=== PATIENT | female | born 1950 | race Caucasian/White ===

== ENCOUNTER 2017-10-11 06:10 | Inpatient (IN) | payer MEDICARE, BC ==
--- NOTE | 2017-09-28 22:43 | HP ---
HISTORY AND PHYSICAL: DATE OF ADMISSION/SURGERY: 10/11/17 DATE OF OFFICE VISIT: 09/28/17 SURGEON: Massiel Kinney MD * (DICTATED BY PASTOR KRAUSE) PROCEDURE: Right total knee arthroplasty. CHIEF COMPLAINT: Right knee pain. HISTORY OF PRESENT ILLNESS: Ms. Cerrato is a 66-year-old female with continued complaints of right knee pain. She has failed conservative management and elected to proceed with a right total knee arthroplasty, which is scheduled for 10/11/[address] Kinney. PAST MEDICAL HISTORY: Hypertension, rheumatoid arthritis, depression and anxiety. PAST SURGICAL HISTORY: Right shoulder rotator cuff repair, lumbar diskectomy, tonsillectomy, tubal ligation. CURRENT MEDICATIONS: 1. Hydroxychloroquine sulfate 200 mg daily. 2. Methotrexate 2.5 mg 8 tabs per week. 3. Enbrel 25 mg subcu 2 times a week. 4. Folic acid 1 mg daily. 5. Losartan potassium 25 mg daily. 6. B12 injection. 7. Alendronate sodium 70 mg weekly. 8. Sertraline 50 mg daily. 9. Montelukast sodium 10 mg q.h.s. 10. Citracal plus vitamin D3. 11. Vitamin K. 12. Vitamin B complex. 13. Claritin 10 mg daily. 14. Flonase nasal spray as needed. 15. Naphcon-A eye drops. 16. Hydrochlorothiazide 12.5 mg daily. ALLERGIES: None. FAMILY HISTORY: Cancer and coronary artery disease. SOCIAL HISTORY: A 66-year-old female lives with her . She does not smoke, use drugs or alcohol. REVIEW OF SYSTEMS: A complete 14-point review of systems was reviewed with the patient. Positive for occasional palpitation. She denies history of DVT, PE, hepatitis, HIV or anesthesia problems. PHYSICAL EXAMINATION GENERAL: She is well developed, well nourished, in no acute distress. VITAL SIGNS: She stands 66 inches tall, weighs 219 pounds. Her blood pressure is 122/67. Her heart rate is 64. HEENT: Normocephalic, atraumatic. NECK: Supple. No palpable lymph nodes. PULMONARY: The lungs are clear to auscultation bilaterally. CARDIO: Regular rate and rhythm. Strong S1, S2. ABDOMEN: Soft, nontender, nondistended. NEUROLOGICAL: Alert and oriented x3. MUSCULOSKELETAL: Right lower extremity, the skin is intact. No open wounds or abrasions. She has a moderate joint effusion. Range of motion is 15 to 130 degrees. Patellofemoral crepitus. There is a 15-degree valgus deformity. 2+ dorsalis pedis pulses. Intact sensation in her lower extremity. Muscle group strengths are intact at 5/5. ASSESSMENT AND PLAN: Ms. Cerrato is a 66-year-old female with complaints of right knee pain secondary to end-stage osteoarthritis. She has failed conservative management and elected to proceed with a right total knee arthroplasty, which is scheduled for 10/11/[address] Kinney discussed the risks and benefits of this surgery at today's visit and all of her questions were answered. She will follow up with Dr. Kinney 2 weeks after the surgery. PASTOR KRAUSE [id number]/[facility] #: [id number] MEHDI
[~2017-10-11 06:10] MED LIST: Buffered Lidocaine 0.9% SYRIN* 5 ML/SYR SYRINGE INTRADERM ONE; Dexamethasone TAB* 4 MG PO ONE; DiMENhydriNATE IV* 50 MG/ML VIAL IV PUSH PRN; Famotidine IV* 10 MG/ML 2 ML (20 mg) IV ONE; Gabapentin CAP(*) 300 MG PO ONE; Morphine INJ* 2 MG/ML 1 ML CARPUJECT IV PRN; Naloxone* 0.4 MG/ML 1 ML VIAL IV PRN; Ondansetron INJ* 2 MG/ML VIAL ONE; PROCHLORPERAZINE INJ 5 MG/ML 2 ML VIAL IV PRN; Scopolamine 1.5 mg* PATCH TRANSDERM ONE; fentaNYL* 50 MCG/ML 2 ML VIAL (100 MCG VIAL) IV PRN
[2017-10-11] MEDS ORDERED: Famotidine IV* 10 MG/ML 2 ML (20 mg) ONE (06:13)
[2017-10-11] MEDS ORDERED: Gabapentin CAP(*) 300 MG ONE (06:13)
[2017-10-11] MEDS ORDERED: Scopolamine 1.5 mg* PATCH ONE (06:14)
[2017-10-11] MEDS ORDERED: ceFAZolin 2 GM PREMIX (*) 2 GM/50 ML BAG IVPB ONE (06:14)
[2017-10-11] MEDS ORDERED: Dexamethasone TAB* 4 MG ONE (06:14)
[2017-10-11] MEDS ORDERED: Bupivacaine 0.5% SDV PF* 30ML VIAL ONE (06:42)
[2017-10-11] MEDS ORDERED: Ondansetron ODT TAB* 4 MG ONE (06:51)
[2017-10-11] MEDS ORDERED: fentaNYL* 50 MCG/ML 2 ML VIAL (100 MCG VIAL) ONE (07:06)
[2017-10-11] MEDS ORDERED: Midazolam* 1 MG/ML 10 ML VIAL (10 MG) ONE (07:06)
[2017-10-11] MEDS ORDERED: KETAMINE HCL* 50 MG/ML 10 ML VIAL ONE (07:06)
[2017-10-11] MEDS ORDERED: Tranexamic Acid 1,000 MG/10 ML SDV IV ONE (07:51)
[2017-10-11] MEDS ORDERED: Tranexamic Acid 1,000 MG/10 ML 1,000 MG in NS 0.9% 100 ML* 100 ML IV ONE (08:00)
[2017-10-11] MEDS ORDERED: Lidocaine 2% PF * 5 ML VIAL ONE (08:56)
[2017-10-11] MEDS ORDERED: Bupivacaine 0.25% SDV* 30 ML ONE (08:56)
[2017-10-11] MEDS ORDERED: Bupivacaine 0.5% PF 10 ML VIAL INJ ONE (08:56)
[2017-10-11] MEDS ORDERED: Propofol* 500 MG/50 ML BTL ONE (08:56)
[2017-10-11] MEDS ORDERED: Phenylephrine INJ* 10 MG/ML 1 ML VIAL (10 MG) ONE (09:20)
[2017-10-11] MEDS ORDERED: Propofol* 10 MG/ML 20 ML BTL IV PUSH ONE (10:16)
[2017-10-11] MEDS ORDERED: Cyclobenzaprine TAB* 10 MG PO PRN (10:42)
[2017-10-11] MEDS ORDERED: Bisacodyl SUPP* 10 MG SUPP PR PRN (10:42)
[2017-10-11] MEDS ORDERED: Ondansetron 40 MG VIAL* 2 MG/ML 20 ML VIAL IV PRN (10:42)
[2017-10-11] MEDS ORDERED: Morphine VIAL* 4 MG/ML VIAL (1 ml vial) IV PRN (10:42)
[2017-10-11] MEDS ORDERED: diPHENhydraMINE IV* 50 MG/ML 1 ml VIAL (BENADRYL) IV PRN (10:42)
[2017-10-11] MEDS ORDERED: Magnesium Hydroxide LIQ* 30 ML UDC PO PRN (10:42)
[2017-10-11] MEDS ORDERED: Acetaminophen TAB* 325 MG PO PRN (10:42)
[2017-10-11] MEDS ORDERED: oxyCODONE/Acetamin 5/325 MG* TAB PO PRN (10:42)
--- NOTE | 2017-10-11 11:32 | RAD ---
Indication: Right total knee replacement. 2 views of the right knee demonstrates bipolar right knee arthroplasty in satisfactory position. IMPRESSION: Right knee arthroplasty in satisfactory position.
[2017-10-11] MEDS: oxyCODONE/Acetamin 5/325 MG* TAB PO PRN ×2 (17:05→21:50)
[2017-10-11] MEDS: ceFAZolin 1 GM in Dextrose (*) 1 GM/50 ML BAG IVPB SCH (17:05)
[2017-10-11] MEDS ORDERED: Warfarin TAB(*) 6 MG PO ONE (18:00)
[2017-10-11] MEDS: Docusate CAP* 100 MG PO SCH (21:51)
[2017-10-11] MEDS: Magnesium Hydroxide LIQ* 30 ML UDC PO SCH (21:51)
[2017-10-12] MEDS: ceFAZolin 1 GM in Dextrose (*) 1 GM/50 ML BAG IVPB SCH ×2 (00:29→09:20)
[2017-10-12] MEDS: oxyCODONE TAB* 5 MG TAB PO PRN ×4 (01:38→22:27)
[2017-10-12] MEDS: oxyCODONE/Acetamin 5/325 MG* TAB PO PRN ×2 (05:56→09:53)
[2017-10-12 08:16] LABS: Hematocrit 28 % (35-47); Hemoglobin 9.8 g/dl (12.0-16.0); Mean Platelet Volume 8.2 um3 (7.4-10.4); Platelet Count 241 10^3/ul (150-450)
[2017-10-12 08:17] LABS: INR 1.07 (0.77-1.02)
[2017-10-12 08:21] LABS: EGFR Non-African American 100.3 (>60)
[2017-10-12] MEDS: Sertraline* 50 MG TAB PO SCH (09:20)
[2017-10-12] MEDS: Magnesium Hydroxide LIQ* 30 ML UDC PO SCH ×2 (09:20→19:26)
[2017-10-12] MEDS: Docusate CAP* 100 MG PO SCH ×2 (09:20→19:27)
[2017-10-12] MEDS: UBIQUINOL PO SCH (09:21)
[2017-10-12] MEDS: Vitamin THERAPEUTIC TAB PO SCH (09:21)
[2017-10-12] MEDS: Hydroxychloroquine TAB* 200 MG PO SCH (09:52)
[2017-10-12] MEDS ORDERED: Potassium Chlor TAB* 20 MEQ TAB.ER PO ONE (10:44)
--- NOTE | 2017-10-12 10:44 | PN ---
Subjective Date of Service: 10/12/17 Interval History: Increased pain this morning. reports it is a little better now after Percocet. Feels a little dizzy this am, weak and a little weepy. She states "I know it will get better, just a tough day". Denies nausea, abdominal pain. Little appetite. No fever or chills. No CP/ SOB Objective Active Medications: Acetaminophen (Tylenol Tab*) 650 mg PO Q4H PRN PRN Reason: PAIN OR TEMPERATURE Bisacodyl (Dulcolax Supp*) 10 mg [place] DAILY PRN PRN Reason: constipation Cyclobenzaprine HCl (Flexeril Tab*) 5 mg PO TID PRN PRN Reason: SPASMS Diphenhydramine HCl (Benadryl Iv*) 25 mg IV Q6H PRN PRN Reason: itching Docusate Sodium (Colace Cap*) 100 mg PO BID [facility] Last Admin: 10/12/17 09:20 Dose: 100 mg Enoxaparin Sodium (Lovenox(*)) 30 mg SUBCUT Q24H [facility] Hydroxychloroquine Sulfate (Plaquenil Tab*) 200 mg PO QAM [facility] Last Admin: 10/12/17 09:52 Dose: 200 mg Lactated Ringer's (Lactated Ringers 1000 Ml Bag*) 1,000 mls @ 75 mls/hr IV PER RATE [facility] Last Admin: 10/12/17 07:05 Dose: 75 mls/hr Lactulose (Lactulose*) 30 ml PO Q6H PRN PRN Reason: constipation Magnesium Hydroxide (Milk Of Magnesia Liq*) 30 ml PO BID [facility] Last Admin: 10/12/17 09:20 Dose: 30 ml Magnesium Hydroxide (Milk Of Magnesia Liq*) 30 ml PO Q6H PRN PRN Reason: constipation Montelukast Sodium (Singulair Tab*) 10 mg PO QPM [facility] Morphine Sulfate (Morphine Vial*) 2 mg IV Q2H PRN PRN Reason: PAIN Last Admin: 10/11/17 21:54 Dose: 2 mg Multivitamins (Theragran Tab*) 1 tab PO DAILY [facility] Last Admin: 10/12/17 09:21 Dose: 1 tab Non-Formulary Medication (Ubiquinol [Ubiquinol]) 3 cap PO QAM [facility] Last Admin: 10/12/17 09:21 Dose: Not Given Ondansetron HCl (Zofran 40 Mg Vial*) 4 mg IV Q6H PRN PRN Reason: nausea Oxycodone HCl (Roxycodone Tab*) 10 mg PO Q4H PRN PRN Reason: PAIN - SEVERE Last Admin: 10/12/17 01:38 Dose: 10 mg Oxycodone/Acetaminophen (Percocet 5/325 Tab*) 2 tab PO Q4H PRN PRN Reason: PAIN Last Admin: 10/12/17 09:53 Dose: 2 tab Oxycodone/Acetaminophen (Percocet 5/325 Tab*) 1 tab PO Q4H PRN PRN Reason: PAIN Pharmacy Profile Note (Scopolamine Patch Remove*) 1 note PATCH OFF ONCE ONE Stop: 10/14/17 06:01 Sertraline HCl (Zoloft*) 75 mg PO QAM [facility] Last Admin: 10/12/17 09:20 Dose: 75 mg Warfarin Sodium (Coumadin Tab(*)) 6 mg PO ONCE@1700 BEAN; Protocol Stop: 10/12/17 17:01 Vital Signs - 8 hr 10/12/17 10/12/17 10/12/17 03:45 05:56 07:17 Temperature 98.1 F Pulse Rate 67 Respiratory 15 16 16 Rate Blood Pressure 110/65 (mmHg) O2 Sat by Pulse 98 98 Oximetry 10/12/17 10/12/17 10/12/17 07:42 09:53 09:55 Temperature 98.1 F Pulse Rate 63 Respiratory 18 18 18 Rate Blood Pressure 95/50 (mmHg) O2 Sat by Pulse 97 Oximetry Oxygen Devices in Use Now: Nasal Cannula Appearance: 66 yo female A+Ox3 in mild pain Eyes: No Scleral Icterus, PERRLA Ears/Nose/Mouth/Throat: NL Teeth, Lips, Gums, Mucous Membranes Moist Neck: NL Appearance and Movements; NL JVP Respiratory: Symmetrical Chest Expansion and Respiratory Effort, Clear to Auscultation Cardiovascular: NL Sounds; No Murmurs; No JVD, RRR, No Edema Abdominal: NL Sounds; No Tenderness; No Distention Extremities: No Clubbing, Cyanosis, - - right knee with cryo-unit intact - good periperal sensation Skin: No Rash or Ulcers, No Nodules or Sclerosis Neurological: Alert and Oriented x 3, NL Sensation, NL Muscle Strength and Tone Lines/Tubes/Other Access: Clean, Dry and Intact Peripheral IV Nutrition: Taking PO's Result Diagrams: 10/12/17 07:53 10/12/17 07:53 Assess/Plan/Problems-Billing Assessment: - Patient Problems (1) Status post total right knee replacement Comment: - Dispo per Ortho - POD #1 - Doing very well. - Bowel regimen, PT/OT - pain management - discussed with patien - plan to start scheduled APAP, DC percocet and continue oxycodone prn. (2) HTN (hypertension) Comment: - soft BPs this am. Continue to hole HTCZ and losartan, restart when appropriate (3) Rheumatoid arthritis Comment: - continue home medications - plaquenil, Methotrexate to be continued as outpt (4) DVT prophylaxis Comment: lovenox - coumadin bridge (5) Full code status
--- NOTE | 2017-10-12 11:41 | PN ---
Progress Note - Progress Note Date of Service: 10/12/17 SOAP: Subjective: [Seen sitting up in chair this am. Pt states she has moderate pain. She is having trouble getting comfortable. She states that she was able to get up and walk with PT today. Denies any numbness, tingling, nausea, vomiting, chest pain or SOB. ] Objective: [General: Pt is awake, alert and oriented. NAD MSK, RLE: Inspection of the right knee reveals a dressing that is clean, dry and intact. + df/pf. Full sensation to light touch distally. 2+ DP pulse. ] Vital Signs Temp 98.1 F 10/12/17 07:42 Pulse 63 10/12/17 07:42 Resp 18 10/12/17 09:55 BP 95/50 10/12/17 07:42 Pulse Ox 97 10/12/17 07:42 Intake & Output 10/11/17 10/12/17 10/12/17 18:59 06:59 18:59 Intake Total 2200 1640 1331 Output Total 2600 1200 Balance -771 808 9895 Intake: IV Fluids 1999 50 1011 ABX - CEFAZOLIN 50 53 LR 2000 958 Oral 200 1590 320 Output: Casarez 2250 1200 Residual 150 Casarez 16 Fr 150 Estimated Blood Loss 200 Assessment: [POD 1 RTKA ] Plan: [- continue current pain medication - Continue with PT/OT - Continue with hospitalists co-managing - 6mg of warfarin this evening.]
[2017-10-12] MEDS: Enoxaparin(*) 30 MG/0.3 ML SYR SUBCUT SCH (12:17)
--- NOTE | 2017-10-12 12:47 | CONS ---
CONSULTATION NOTE: DATE OF CONSULT: 10/11/17 PROVIDER: Santos Beatty NP ATTENDING PHYSICIAN: Dr. Onofre (report dictated by Santos Beatty NP) REFERRING PHYSICIAN: Dr. Kinney. REASON FOR CONSULT: Co-medical management, status post total right knee arthroplasty. HISTORY OF PRESENT ILLNESS: Ms. Cerrato is a 66-year-old female with a past medical history of rheumatoid arthritis, hypertension, depression, anxiety who underwent an elective right total knee arthroplasty with Dr. Kinney today. The surgery was successful without any complications. The patient has done very well postoperatively and today in evaluation she is found sitting up in a chair , alert and oriented x3, reporting she has no pain. She reports that she feels "pretty great." She states that she has a "high tolerance for pain." She denies any nausea, vomiting. Reports she is tolerating p.o. liquid diet well. Denies any dizziness. The patient and I discussed her home medications and her last medication dosages. She is due for her methotrexate until after she was discharged home. PAST MEDICAL HISTORY: Hypertension, rheumatoid arthritis, depression and anxiety. PAST SURGICAL HISTORY: 1. Lumbar diskectomy. 2. Status post tonsillectomy. 3. Status post tubal ligation. 4. Status post right shoulder rotator cuff repair. HOME MEDICATIONS: 1. Plaquenil 200 mg daily. 2. Methotrexate 2.5 mg 8 tabs every 7 days. 3. Enbrel 25 mg subcutaneously 2 times a week. 4. Folic acid 1 mg p.o. daily. 5. Losartan 25 mg p.o. daily. 6. B12 injection. 7. Alendronate sodium 70 mg weekly. 8. Sertraline 75 mg p.o. q.a.m. 9. Montelukast 10 mg q.h.s. 10. Citracal plus vitamin D3. 11. Hydrochlorothiazide 12.5 mg p.o. q.a.m. 12. Vitamin K2 100 mcg p.o. q.a.m. 13. Turmeric root 1000 mg p.o. q.a.m. 14. Ubiquinol 3 caps p.o. q.a.m. (100 mg capsules). CURRENT MEDICATIONS: Reviewed and appreciated. ALLERGIES: No known allergies. FAMILY HISTORY: Coronary artery disease, cancer. SOCIAL HISTORY: The patient denies any history of smoking. Denies alcohol use. She currently lives at home with her who is her healthcare proxy. REVIEW OF SYSTEMS: A 14-point review of systems was performed. All the pertinent positives and negatives are mentioned in the history of present illness. Otherwise negative. PHYSICAL EXAMINATION: General Appearance: Well-developed 66-year-old female sitting up in a chair. Alert and oriented x3, in no acute distress. Vital Signs: Temperature 98.4, heart rate 68, respirations 16, O2 sat 98% on 2 L nasal cannula, blood pressure 110/94. HEENT: Head is normocephalic, atraumatic. Pupils are equal and reactive to light. Oropharynx is clear. Moist mucous membranes. Neck is supple. Cardiac: S1, S2. Regular rate and rhythm. No murmur, rub, or gallop appreciated. No lower extremity edema noted. Lungs: Clear to auscultation bilaterally. Good aeration throughout. Abdomen: Soft, nontender, nondistended. Normal bowel sounds throughout. Neuro : Alert and oriented x3. No focal deficits. Extremities: Right lower extremity is attached to a cryo unit. Sensation to lower extremities intact to light touch. ASSESSMENT AND PLAN: Ms. Cerrato is a 66-year-old female with past medical history of rheumatoid arthritis, hypertension, depression, anxiety who underwent a right total knee arthroplasty with Dr. Kinney today. Hospital Medicine has been asked to consult for co-medical management. 1. Status post right total knee arthroplasty. Postop day 0. The patient had a successful surgery without any complications. She is doing very well postoperatively. Her pain is well controlled. Continue orders per Ortho for p.r.n. pain medication. Continue PT/OT, bowel regimen. 2. Hypertension. The patient did take her blood pressure medication this morning. She has blood pressures on the softer side postoperatively and systolically around 110. Plan to hold hydrochlorothiazide and losartan and will reevaluate in the morning. 3. Rheumatoid arthritis. Per patient this appears to be well controlled. Plan to continue Plaquenil Per patient, she will take methotrexate at home after she has already been discharged. 4. Depression and anxiety. Continue Zoloft. 5. DVT prophylaxis per ortho team in which she is currently on Lovenox 30 mg subcutaneously q.24 hours. 6. Code status. Full code. TIME SPENT: Approximately 60 minutes were spent on this consultation. Hospital Medicine will continue to follow along. SANTOS BEATTY NP [id number]/[facility] #: [id number] [facility] HEALTHJules
--- NOTE | 2017-10-12 14:09 | OP ---
DATE OF OPERATION: 10/11/17 - ROOM #342 DATE OF : 52 ATTENDING SURGEON: Massiel Kinney MD. SUPERVISOR CEMETERY WORKERS: PASTOR Mendoza. Mr. Mcwilliams did help throughout the procedure with preparation of the leg, wound retraction, manipulation of the knee, and wound closure ANESTHESIOLOGIST: Dr. Tompkins. ANESTHESIA: Spinal. PRE-OP DIAGNOSIS: Severe endstage degenerative osteoarthritis of the right knee joint. POST-OP DIAGNOSIS: Severe endstage degenerative osteoarthritis of the right knee joint. OPERATIVE PROCEDURE: Right total knee arthroplasty. TOURNIQUET TIME: 42 minutes. COMPLICATIONS: None. SPECIMEN: Bone and cartilage from the right knee joint, sent to pathology. HARDWARE USED: This is [employer] cemented total knee arthroplasty hardware. Two packages of Simplex bone cement were used. For the femur, a size 5 right posterior stabilized Legion Oxinium femoral component. For the tibia, a size 4 right tibial baseplate Renee II. For the insert, a 9-mm posterior stabilized articular insert size 3/4. For the patella, a 32-mm, 3-peg all poly patella with 7.5 thickness. BRIEF HISTORY/INDICATIONS: Ms. Cerrato is a 66-year-old female with years of increasingly severe right knee pain. She failed conservative treatment with the antiinflammatories, pain medication, intraarticular injections, and physical therapy. Due to continued pain and decreased quality of life, the patient elected to undergo right total knee arthroplasty. Radiographs confirmed severe bone-on- bone arthritis. Informed consent was obtained from the patient. She understood the risks of the surgery included, but were not limited to, bleeding, infection, damage to nearby structures, continued pain, need for further surgery, intraoperative fracture, nerve palsy, hardware failure or loosening, knee stiffness, loss of motion, stroke, heart attack, blood clot, and . She wished to proceed. INTRAOPERATIVE FINDINGS: Intraoperatively, the patient was noted to have a severe endstage arthritis with tricompartmental full-thickness loss of cartilage. She did have significant osteopenia noted. DESCRIPTION OF PROCEDURE: Ms. Cerrato was identified in the preanesthesia unit. Her right lower extremity was marked as the correct operative side. Informed consent was signed and placed in the chart. The patient was placed under spinal anesthesia. A Casarez catheter placed. A tourniquet was placed on the right thigh. Right lower extremity was prepped and draped in the usual sterile fashion. Preop time-out was made to correctly identify the patient, side, and site. Appropriate perioperative antibiotics were given within 1 hour of incision. Tourniquet was inflated and total tourniquet time for this procedure was 42 minutes. A midline incision was made and carried down to the extensor mechanism. A new 10-blade was used to make a standard medial parapatellar arthrotomy. Patella was subluxed laterally. Electrocautery was used to subperiosteally elevate soft tissue off the superomedial tibia to the mid sagittal plane. Knee was flexed up. Anterior horn of the lateral meniscus and ACL were sharply released. A drill was used to enter the distal femur. Intramedullary distal femoral cutting guide was pinned on the distal femur. Oscillating saw was used to make the distal femoral cut. Next, the external rotation guide was pinned on the distal femur. Femur was sized to a size 5. Size 5 multi-cutting jig was pinned on the distal femur. Oscillating saw was used to make the appropriate 4 chamfer cuts. Next, the PCL was completely released. The tibia was subluxed anteriorly. Extramedullary tibial cutting guide was pinned on the proximal tibia. Oscillating saw was used to make a proximal tibial cut perpendicular to the mechanical axis of the tibia. The bone was carefully removed. The knee was brought out into full extension. Spacer block had good fit with the knee in full extension. Medial and lateral ligaments were well balanced. Flexion and extension gaps were well balanced. The knee was flexed up. Tibial tray and drop geetha were used once again confirm satisfactory tibial cut. This was confirmed. Lamina senior contracts manager was placed both medially and laterally. Any remaining meniscus was carefully removed using electro-cautery. Curved osteotome was used to remove any posterior osteophytes. A size 5 right trial femoral component was impacted on to the distal femur. This had excellent fit. The box for the posterior stabilized implant was prepared using a reamer and box cut osteotome. A size 4 tibial tray trial with a 9-mm insert trial was placed and the knee was taken through a range of motion. The knee had full extension to 130 degrees of flexion. There was satisfactory patellofemoral tracking. The patella was everted. 7 mm of patellar bone and cartilage were carefully removed using an oscillating saw. Patella was sized to a size 32. The three peg holes were drilled through the size 32 guide. A 32 trial patella with 7.5 thickness was placed and the knee was taken through a range of motion. There was satisfactory patellofemoral tracking. All trials were removed. The tibia was subluxed anteriorly and sized to a size 4. Proximal tibia was prepared using a size 4 keel punch. All bony cut surfaces were copiously irrigated with sterile saline and dried. Final implants were cemented into place starting with the tibia, followed by the femur , and last the patella. A 9-mm insert trial was placed and the knee was brought out to full extension. The tourniquet was turned down at 42 minutes. The knee was copiously irrigated with sterile saline. Electrocautery was used to obtain meticulous hemostasis. Once the cement had fully cured, the insert trial was removed. Any excess cement was removed from around the capsule and hardware. Final implant chosen was a 9-mm posterior stabilized articular insert size 3/4. This was locked into position on the tibial tray. Stability of the insert was checked and rechecked and noted to be stable. The extensor mechanism was closed using interrupted #1 Vicryls. The rest of the incision was closed in a layered fashion using 0 and 2-0 Vicryls. Skin was closed using running 3-0 nylon suture. Sterile Xeroform, 4x4s, and Webril were used to cover the incision. The patient's anesthesia was reversed without difficulty. She was taken to the PACU in stable condition. Intended weightbearing will be weightbearing as tolerated. Intended DVT prophylaxis will be Coumadin with a Lovenox bridge. [id number]/[facility] #: [id number] MEHDI
[2017-10-12] MEDS ORDERED: Acetaminophen TAB* 325 MG PO SCH (15:00)
[2017-10-12] MEDS: Acetaminophen TAB* 325 MG PO SCH ×2 (16:23→23:33)
[2017-10-12] MEDS ORDERED: Warfarin TAB(*) 6 MG PO SCH (17:00)
[2017-10-12] MEDS ORDERED: Montelukast Sodium TAB* 10 MG PO SCH (18:00)
[2017-10-13] MEDS: oxyCODONE TAB* 5 MG TAB PO PRN ×3 (04:15→12:03)
[2017-10-13 06:37] LABS: Hematocrit 27 % (35-47); Hemoglobin 9.6 g/dl (12.0-16.0); Mean Platelet Volume 8.6 um3 (7.4-10.4); Platelet Count 242 10^3/ul (150-450)
[2017-10-13 06:45] LABS: INR 1.27 (0.77-1.02)
[2017-10-13 07:01] LABS: EGFR Non-African American 115.8 (>60)
[2017-10-13] MEDS: Acetaminophen TAB* 325 MG PO SCH (08:00)
[2017-10-13] MEDS: Docusate CAP* 100 MG PO SCH (08:01)
[2017-10-13] MEDS: Hydroxychloroquine TAB* 200 MG PO SCH (08:01)
[2017-10-13] MEDS: Sertraline* 50 MG TAB PO SCH (08:01)
[2017-10-13] MEDS: Vitamin THERAPEUTIC TAB PO SCH (08:01)
[2017-10-13] MEDS: UBIQUINOL PO SCH (08:02)
[2017-10-13] MEDS: Magnesium Hydroxide LIQ* 30 ML UDC PO SCH (08:02)
--- NOTE | 2017-10-13 09:37 | PN ---
Progress Note - Progress Note Date of Service: 10/13/17 SOAP: Subjective: [Seen sitting up in bed this am. Pt states her pain has improved significantly. She states she is ready to go home today. No complaints. Denies any numbness, tingling, nausea, vomiting, chest pain or SOB. ] Objective: [General: Pt is awake, alert and oriented. NAD MSK, RLE: Inspection of the right knee reveals a dressing that is clean, dry and intact. Dressing was changed today. Incision was clean, dry and intact, no discharge or erythema present. Mild amount of dried blood present on the gauze pad. + df/pf. Full sensation to light touch distally. 2+ DP pulse. ] Vital Signs Temp 99.3 F 10/13/17 04:28 Pulse 71 10/13/17 04:28 Resp 20 10/13/17 08:01 BP 124/54 10/13/17 04:28 Pulse Ox 93 10/13/17 04:28 Intake & Output 10/12/17 10/13/17 10/13/17 18:59 06:59 18:59 Intake Total 1731 960 240 Output Total 450 400 Balance 1281 560 240 Intake: IV Fluids 1011 ABX - CEFAZOLIN 53 LR 958 Oral 720 960 240 Output: Urine 450 400 Other: Estimated Void Large # Voids 1 Assessment: [POD 2 RTKA ] Plan: [- continue current pain medication - Continue with PT/OT - Continue with hospitalists co-managing - DC home today - INR 1.27 - 6mg of warfarin this evening.
[2017-10-13] MEDS: Enoxaparin(*) 30 MG/0.3 ML SYR SUBCUT SCH (12:03)
--- NOTE | 2017-10-13 15:32 | PN ---
Subjective Date of Service: 10/13/17 Objective Active Medications: Acetaminophen (Tylenol Tab*) 975 mg PO Q8H [facility] Bisacodyl (Dulcolax Supp*) 10 mg [place] DAILY PRN Cyclobenzaprine HCl (Flexeril Tab*) 5 mg PO TID PRN Diphenhydramine HCl (Benadryl Iv*) 25 mg IV Q6H PRN Docusate Sodium (Colace Cap*) 100 mg PO BID [facility] Enoxaparin Sodium (Lovenox(*)) 30 mg SUBCUT Q24H [facility] Hydroxychloroquine Sulfate (Plaquenil Tab*) 200 mg PO QAM [facility] Lactated Ringer's (Lactated Ringers 1000 Ml Bag*) 1,000 mls @ 75 mls/hr IV PER RATE [facility] Lactulose (Lactulose*) 30 ml PO Q6H PRN Magnesium Hydroxide (Milk Of Magnesia Liq*) 30 ml PO BID [facility] Magnesium Hydroxide (Milk Of Magnesia Liq*) 30 ml PO Q6H PRN Montelukast Sodium (Singulair Tab*) 10 mg PO QPM [facility] Morphine Sulfate (Morphine Vial*) 2 mg IV Q2H PRN Multivitamins (Theragran Tab*) 1 tab PO DAILY [facility] Non-Formulary Medication (Ubiquinol [Ubiquinol]) 3 cap PO QAM [facility] Ondansetron HCl (Zofran 40 Mg Vial*) 4 mg IV Q6H PRN Oxycodone HCl (Roxycodone Tab*) 10 mg PO Q4H PRN Oxycodone HCl (Roxycodone Tab*) 5 mg PO Q4H PRN Pharmacy Profile Note (Scopolamine Patch Remove*) 1 note PATCH OFF ONCE ONE Sertraline HCl (Zoloft*) 75 mg PO QAM [facility] Vital Signs: Temp Pulse Resp BP Pulse Ox 97.9 F 72 20 109/50 96 10/13/17 12:05 10/13/17 08:11 10/13/17 12:03 10/13/17 08:11 10/13/17 08:11 Oxygen Devices in Use Now: Nasal Cannula Result Diagrams: 10/13/17 05:49 10/13/17 05:49 Assess/Plan/Problems-Billing Assessment: Ms. Cerrato is a 66 yo F with a PMH of HTN and rheumatoid arthritis who was admitted on 10/11/17 for a left total knee replacement. - Patient Problems (1) Status post total right knee replacement Comment: - Dispo per Ortho - POD #2 - Doing very well. - Bowel regimen, PT/OT - H/H stable. (2) HTN (hypertension) Comment: - SBP 90-120s. - Continue to hole HTCZ and losartan, restart when appropriate (3) Rheumatoid arthritis Comment: - continue home medications - plaquenil, Methotrexate to be continued as outpt (4) DVT prophylaxis Comment: lovenox - coumadin bridge (5) Full code status Comment: Status and Disposition: Disposition per ortho.
[2017-10-13 17:37] VITALS: BP 108/59
--- NOTE | 2017-10-14 02:01 | DS ---
DISCHARGE SUMMARY: DATE OF ADMISSION: 10/11/17. DATE OF DISCHARGE: 10/13/17. ATTENDING SURGEON: Massiel Kinney MD.* (DICTATED BY PASTOR KRAUSE) PRINCIPAL DIAGNOSIS: End-stage osteoarthritis of the right knee. DISCHARGE DIAGNOSIS: End-stage osteoarthritis of the right knee. HISTORY OF PRESENT ILLNESS: Ms. Cerrato is a 66-year-old female with continued complaints of right knee pain. She has failed conservative management and elected to proceed with a right total knee arthroplasty. HOSPITAL COURSE: Ms. Cerrato was admitted electively to the hospital on 10/11/17 and underwent a right total knee arthroplasty. She tolerated the procedure well without complications. Postoperatively, she was placed on Lovenox and Coumadin for DVT prophylaxis. On postoperative day 1, her H and H was 9.8 and 28; on postoperative day 2, 9.6 and 27. Her INR went from 1.07 to 1.27 on postoperative day 2. She made daily improvement with physical therapy. At the time of discharge, she was afebrile, she was ambulating well with the aid of a walker. She was discharged home in stable condition. DISCHARGE MEDICATIONS: 1. Percocet 5/325, 1 to 2 tabs every 4 to 6 hours as needed for pain. 2. Colace 100 mg 1 tab 2 to 3 times daily for constipation. 3. Coumadin 2 mg tabs. 4. Plaquenil 200 mg in the morning. 5. Singulair 10 mg daily. 6. Zoloft 75 mg daily. PHYSICAL EXAMINATION UPON DISCHARGE: The incision was clean and dry. There was no sign of infection. She was ambulating well with the aid of a walker and she was distally neurovascularly intact. She was afebrile and her vital signs were stable. DISCHARGE INSTRUCTIONS: She was discharged home in stable condition. She was given a prescription for Percocet for pain, Colace for constipation and Coumadin. Her INR at the time of discharge is 1.27. She was asked to take 6 mg of Coumadin tonight, 6 mg Tuesday night, 4 mg Tuesday, 4 mg Tuesday night. VNS will recheck her INR on Tuesday. She can shower with soap and water run over the incision. She cannot take a bath, again, no pool or hot tub. Dr. Kinney wants to see her back in 2 weeks. She is weightbearing as tolerated. PASTOR KRAUSE [id number]/[facility] #: [id number] [facility]
[2017-10-14] MEDS ORDERED: Scopolamine PATCH Remove* 1 NOTE MISC PATCH OFF ONE (06:00)
== END 2017-10-13 13:15 | disposition home health service (06) | DRG 470 ==
LOC: OR 06:10 → SSU 14:59
PROVIDERS: ADMIT Orthopaedic Surgery Adult Reconstructive Orthopaedic Surgery; ATTEND Orthopaedic Surgery Adult Reconstructive Orthopaedic Surgery
PROC: 0SRC069 Replacement of Right Knee Joint with Oxidized Zirconium on Polyethylene Synthetic Substitute, Cemented, Open Approach (ICD-10-PCS; principal; 2017-10-11 07:30)
DX: M17.11 Unilateral primary osteoarthritis, right knee (principal); I10 Essential (primary) hypertension; M06.9 Rheumatoid arthritis, unspecified; F32.9 Major depressive disorder, single episode, unspecified; F41.9 Anxiety disorder, unspecified; M21.061 Valgus deformity, not elsewhere classified, right knee; M79.7 Fibromyalgia; M85.80 Other specified disorders of bone density and structure, unspecified site; R94.31 Abnormal electrocardiogram [ECG] [EKG]; I49.3 Ventricular premature depolarization; E53.8 Deficiency of other specified B group vitamins; E66.9 Obesity, unspecified; G47.30 Sleep apnea, unspecified; M85.861 Other specified disorders of bone density and structure, right lower leg; M25.761 Osteophyte, right knee; Z79.01 Long term (current) use of anticoagulants; Z98.51 Tubal ligation status; Z82.49 Family history of ischemic heart disease and other diseases of the circulatory system; Z80.1 Family history of malignant neoplasm of trachea, bronchus and lung; Z80.0 Family history of malignant neoplasm of digestive organs; Z87.891 Personal history of nicotine dependence; Z72.89 Other problems related to lifestyle; Z68.35 Body mass index [BMI] 35.0-35.9, adult
CPT/HCPCS: 36415; 80048; 83735; 85014; 85018; 85049; 85610; A9270-GY; C1776; G8978-GP-CK; G8979-GP-CI; G8987-GO-CJ; G8988-GO-CH; G8989-GO-CI; J0690; J1650; J2250; J2270; J2704; J3010; J8540

== ENCOUNTER 2018-03-14 11:00 | Inpatient (IN) | payer MEDICARE, BC ==
--- NOTE | 2018-03-02 13:40 | HP ---
HISTORY AND PHYSICAL: DATE OF SURGERY: 03/14/18. DATE OF OFFICE VISIT: 03/01/18. SURGEON: Massiel Kinney MD.* (DICTATED BY PASTOR KRAUSE) PROCEDURE: Left total knee arthroplasty. CHIEF COMPLAINT: Left knee pain. HISTORY OF PRESENT ILLNESS: Ms. Cerrato is a 67-year-old female who complains of left knee pain. She has failed conservative treatment and elected to proceed with a left total knee arthroplasty. PAST MEDICAL HISTORY: Hypertension. PAST SURGICAL HISTORY: Right total knee arthroplasty, right shoulder rotator cuff repair, lumbar discectomy, tubal ligation and tonsillectomy. CURRENT MEDICATIONS: 1. Hydrochloroquine sulfate 200 mg daily. 2. Methotrexate 2.5 mg 7 tabs 1 time a week. 3. Enbrel 25 mg inject 50 mg subcutaneous once a week. 4. Folic acid. 5. Losartan potassium 25 mg daily. 6. Alendronate sodium 70 mg. 7. Sertraline 50 mg take one-a-half tab once a day. 8. Montelukast Sodium 10 mg once a day. 9. Citracal with vitamin D, vitamin D3, vitamin K, vitamin B complex. 10. Claritin 10 mg daily. 11. Flonase as needed. 12. Naphcon eye drops. 13. Hydrochlorothiazide 12.5 mg daily. 14. Turmeric-ubiquinol. 15. Vitamin B12 injection. ALLERGIES: No known drug allergies. FAMILY HISTORY: Cancer. SOCIAL HISTORY: A 67-year-old female. She lives with her spouse. She does not smoke or use drugs. She drinks occasional alcohol. REVIEW OF SYSTEMS: A complete 14-point review of systems was reviewed with the patient, it was all negative or noncontributory. She denies history of DVT, PE , hepatitis, HIV, or anesthesia problems. PHYSICAL EXAMINATION GENERAL: She is well developed, well nourished, in no acute distress. VITAL SIGNS: She stands 5 feet 6 inches tall, weighs 220 pounds, her blood pressure is 136/82, her heart rate is 84. HEENT: Normocephalic, atraumatic. NECK: Supple. No palpable lymph nodes. PULMONARY: Lungs are clear to auscultation bilaterally. CARDIO: Regular rate and rhythm. Strong S1, S2. ABDOMEN: Soft, nontender, nondistended. NEUROLOGICAL: She is alert an d oriented x3. MUSCULOSKELETAL: Left lower extremity, the skin is intact. There are no open wounds are abrasions. Range of motion is 10 to 120 degrees of flexion. She has some tenderness along the medial joint line. She has 2+ dorsalis pedis pulse, intact sensation. Her lower extremity muscle group strengths are intact at 5/5. ASSESSMENT AND PLAN: Ms. Cerrato is a 67-year-old female with end-stage osteoarthritis of the left knee. She has failed conservative treatment and elected to proceed with a left total knee arthroplasty. The surgery is scheduled for 03/14/[address] Kinney has discussed the risks and benefits of the surgery at today's visit and all of her questions were answered. She will follow up with Dr. Kinney in 2 weeks after the surgery. PASTOR KRAUSE [id number]/[facility] #: [id number] [facility]ENTER[facility]
[~2018-03-14 11:00] MED LIST changes: +Dexamethasone IV* 4 MG/ML 1 ML (4 MG) IV SLOW PU ONE; -Dexamethasone TAB* 4 MG PO ONE; -DiMENhydriNATE IV* 50 MG/ML VIAL IV PUSH PRN; -Gabapentin CAP(*) 300 MG PO ONE; -Morphine INJ* 2 MG/ML 1 ML CARPUJECT IV PRN; -Naloxone* 0.4 MG/ML 1 ML VIAL IV PRN; -Ondansetron INJ* 2 MG/ML VIAL ONE; -PROCHLORPERAZINE INJ 5 MG/ML 2 ML VIAL IV PRN; -Scopolamine 1.5 mg* PATCH TRANSDERM ONE; +Tranexamic Acid 1,000 MG in NS 0.9% 50 ML* (outpatient use) IV SCH; -fentaNYL* 50 MCG/ML 2 ML VIAL (100 MCG VIAL) IV PRN
[2018-03-14] MEDS ORDERED: fentaNYL* 50 MCG/ML 2 ML VIAL (100 MCG VIAL) ONE (12:06)
[2018-03-14] MEDS ORDERED: Midazolam* 1 MG/ML 2 ML VIAL (2 MG) ONE (12:06)
--- OUTSIDE RECORDS SUMMARY | 2018-03-14 12:13 | XMS REPORT ---
:1950 External Reference #:[id number] Author Organization [facility] Address [address] [place] [address] [place] [address] Phone [phone] Care Team Providers Name Role Phone Kristen Bennett P.A. Primary Care Physician Unavailable Payers Type Date Identification Numbers Payment Provider Subscriber Medicare Primary Policy Number: [id number] Medicare Katelynn Tompkins PayID: [id number] [address] [place] [address] Medigap Part B Expires: 2017 Policy Number: [id number] Medicare Katelynn Tompkins PayID: [id number] [address] [place] [address] Medigap Part B Policy Number: [id number] [facility] Tien Tompkins PayID: [id number] [address] [place] [address] Problems Date Description Provider Status Onset: 08/26/2017 Localized, primary osteoarthritis Massiel Kinney M.D. Active Onset: 08/26/2017 Acquired genu valgum Massiel Kinney M.D. Active Onset: 10/11/2017 Rheumatoid arthritis Carolee Colin NP Active Onset: 10/11/2017 Essential hypertension Carolee Colin NP Active Family History Date Family Member(s) Problem(s) Comments General Heart Disease General Cancer Father due to CAD () Father due to [place] () Father due to Lung Cancer () Mother due to Gastric Cancer () Mother due to thyroidectomy () Siblings 2 sisters, 1 w/HTN Social History Type Date Description Comments Lives With Spouse Occupation Not Currently Working ETOH Use Occasionally consumes alcohol Smoking Patient is a former smoker quit 2008 Recreational Drug Use Denies Drug Use Daily Caffeine Consumes on average 1 cup of regular coffee per day Exercise Type/Frequency Exercises sporadically Allergies, Adverse Reactions, Alerts Date Description Reaction Status Severity Comments 01/03/2013 NKDA active Medications Medication Date Status Form Strength Qnty SIG Indications Ordering Provider Amoxicillin 11/21 Active Tablets 500mg 4tabs take 4 Z47.1 Massiel tablets by Nirmal, mouth 1 M.D. hour before dental procedure Hydroxychloroquin Active Tablets 200mg 60tab 1 po qd Unknown e Sulfate / s Methotrexate Active Tablets 2.5mg 30tab 7 tabs 1x Unknown / s per week Enbrel Active Kit 25mg 8unit pfs - s inject 50 mg subcutaneo us once a week Folic Acid Active Tablets 1mg Blane, /0000 MD Surendra Losartan Active Tablets 25mg Take 1 Unknown Potassium /0000 Tablet By Mouth Once A Day Alendronate Active Tablets 70mg Blane Sodium / MD Surendra Sertraline HCL Active Tablets 50mg Take 1&1/2 Unknown /0000 Tablets By Mouth Once A Day Montelukast Active Tablets 10mg Take 1 Unknown Sodium /0000 Tablet By Mouth In The Evening prn Citracal +D3 Active Chewtabs 250-107-5 take one Unknown /0000 00mg-mg-U capsule/ta nit blet by mouth twice daily Vitamin D3 Super Active Capsules 2000Unit 1 by mouth Unknown Strength /0000 every day Vitamin K Active Tablets 100mcg Unknown (Phytonadione) /0000 Vitamin B-Complex Active Tablets 1 by mouth Unknown /0000 every day Claritin Active Tablets 10mg once daily Unknown /0000 Flonase Allergy Active Suspension 50mcg/Act spray 1 Unknown Relief /0000 spray in each nostril twice daily Naphcon-A Active Solution 0.025-0.3 1-2 drops Unknown /0000 % into affected eye 4 times daily as needed. Hydrochlorothiazi Active Tablets 12.5mg Take 1 Unknown de /0000 Tablet By Mouth Once Daily In The Morning Turmeric Active Capsules 500mg take 2 Unknown /0000 capsule/ta blet daily by mouth Ubiquinol Active Capsules 100mg 3 capsules Unknown / daily Vitamin B12 TR Active Tablets ER 1000mcg inj Unknown / Tylenol 8 Hour Active Tablets ER 650mg one every Unknown Arthritis Pain /0000 6 hours as needed for pains Percocet 10/13 Hx Tablets 5-325mg 90tab 1-2 by Massiel s mouth Nirmal, - every 4-6 M.D. 11/16 hours needed pain Colace 10/13 Hx Capsules 100mg 90cap 1 tab by Massiel s mouth 2-3 Nirmal, - times a M.D. 11/16 day needed Cyclobenzaprine 10/13 Hx Tablets 10mg 90tab take 1 tab Massiel s by mouth Nirmal, - 2-3 times M.D. 11/16 a day needed Coumadin 10/13 Hx Tablets 2mg 90tab take 1-3 Massiel s tabs by Nirmal, - mouth at 5 M.D. 11/16 at night /2017 as directed Oxycodone-Acetami 09/03 Hx Tablets 5-325mg 80tab 1-2 tabs Lázaro nop s by mouth Ki, - every 4 M.D. 08/25 hours pain Nabumetone 01/03 Hx Tablets 500mg 60tab 1-2 po bid mary Aguilar, - M.D. 03/07 Fluoxetine Hx Capsules 20mg 90cap 2 po qd Unknown / s - 08/25 Prednisone Hx Tablets 10mg 30tab 1/2 -1 tab Unknown /0000 s daily - 03/07 Folic Acid Hx Tablets 1mg 90tab 1 po qd Unknown / s - 08/25 Prednisone Hx Tablets 5mg 70tab 1-2 tabs Unknown / s daily - 08/25 Medications Administered in Office Medication Date Status Form Strength Qnty SIG Indications Ordering Provider Depomedrol Administered Injection Massiel 40MG 018 Nahomi Kinney Depomedrol Administered Injection Massiel 40MG 018 Nahomi Kinney Depomedrol Administered Injection Massiel 40MG Srini Kinney M.D. Vital Signs Date Vital Result Comment 03/01/2018 Height 66 inches 5'6" Weight 220.00 lb Heart Rate 84 /min BP Systolic 136 mmHg BP Diastolic 82 mmHg Body Temperature 98.1 F Pain Level 5 BMI (Body Mass Index) 35.5 kg/m2 01/02/2018 Height 66 inches 5'6" Weight 215.00 lb BP Systolic 132 mmHg BP Diastolic 82 mmHg Body Temperature 97.9 F Pain Level 1 BMI (Body Mass Index) 34.7 kg/m2 11/21/2017 Height 66 inches 5'6" Weight 219.00 lb Respiratory Rate 16 /min Body Temperature 96.5 F Pain Level 0 BMI (Body Mass Index) 35.3 kg/m2 10/24/2017 Height 66 inches 5'6" Heart Rate 96 /min BP Systolic 122 mmHg BP Diastolic 82 mmHg Respiratory Rate 16 /min Body Temperature 97.4 F Pain Level 3 10/07/2017 Height 66 inches 5'6" Weight 219.00 lb per pt Heart Rate 68 /min BP Systolic Sitting 126 mmHg Rue lg cuff BP Diastolic Sitting 84 mmHg Rue lg cuff BP Systolic Standing 120 mmHg Rue BP Diastolic Standing 84 mmHg Rue Respiratory Rate 16 /min BMI (Body Mass Index) 35.3 kg/m2 Ejection Fraction 58% as of 09/2017 stress test 09/28/2017 Height 66 inches 5'6" Weight 219.00 lb BP Systolic 122 mmHg BP Diastolic 67 mmHg Respiratory Rate 15 /min Pain Level 2 BMI (Body Mass Index) 35.3 kg/m2 09/27/2017 Height 66 inches 5'6" Weight 219.00 lb w/o/ shoes Heart Rate 86 /min BP Systolic Sitting 116 mmHg lue lg cuff BP Diastolic Sitting 68 mmHg lue lg cuff BP Systolic Standing 98 mmHg lue lg cuff BP Diastolic Standing 62 mmHg lue lg cuff Respiratory Rate 18 /min BMI (Body Mass Index) 35.3 kg/m2 Ejection Fraction no echo/ss 09/07/2017 Height 66 inches 5'6" Weight 220.00 lb BP Systolic 140 mmHg BP Diastolic 82 mmHg Body Temperature 97.7 F Pain Level 3 BMI (Body Mass Index) 35.5 kg/m2 08/26/2017 Height 66 inches 5'6" Weight 222.00 lb BP Systolic 128 mmHg BP Diastolic 76 mmHg Respiratory Rate 20 /min Body Temperature 97.0 F Pain Level 8 BMI (Body Mass Index) 35.8 kg/m2 08/08/2013 Height 66 inches 5'6" Weight 200.00 lb Heart Rate 76 /min BP Systolic 128 mmHg BP Diastolic 74 mmHg Respiratory Rate 18 /min BMI (Body Mass Index) 32.3 kg/m2 07/18/2013 Height 66 inches 5'6" Weight 203.00 lb Heart Rate 80 /min BP Systolic 146 mmHg BP Diastolic 100 mmHg Respiratory Rate 18 /min Body Temperature 97.7 F BMI (Body Mass Index) 32.8 kg/m2 03/07/2013 Height 67 inches 5'7" Weight 203.00 lb Heart Rate 76 /min BP Systolic 122 mmHg BP Diastolic 84 mmHg Respiratory Rate 16 /min Body Temperature 99.0 F Pain Level 5-6 BMI (Body Mass Index) 31.8 kg/m2 01/24/2013 Height 65 inches 5'5" Weight 201.00 lb Heart Rate 80 /min BP Systolic 118 mmHg BP Diastolic 76 mmHg Respiratory Rate 20 /min Body Temperature 98.1 F BMI (Body Mass Index) 33.4 kg/m2 01/03/2013 Height 66 inches 5'6" Weight 204.00 lb Heart Rate 76 /min BP Systolic 124 mmHg BP Diastolic 84 mmHg Respiratory Rate 16 /min Body Temperature 98.4 F BMI (Body Mass Index) 32.9 kg/m2 Results Test Date Test Result H/L Range Note Inr/Protime 09/28/2017 Inr 0.94 0.77-1.02 Laboratory test finding 09/28/2017 Partial Thrombo 29.6 seconds 26.0- 36.3 Time PTT Urinalysis Profile 09/28/2017 Urine Color Michaela Urine Appearance Cloudy Urine Specific [place] 1.019 1.010-1.030 Urine pH 5.0 5-9 Urine Urobilinogen Negative Negative Urine Ketones Negative Negative Urine Protein Negative Negative Urine Leukocytes Negative Negative Urine Blood Negative Negative Urine Nitrite Negative Negative Urine Bilirubin Negative Negative Urine Glucose Negative Negative Type & Screen 09/28/2017 Patient Blood Type O Positive Antibody Screen NEGATIVE Urine Culture And Sensitivities 09/28/2017 Urine Culture SEE RESULT BELOW 1 1 SEE RESULT BELOW Name: KATELYNN TOMPKINS : [address]: Massiel Kinney MD Acct: [id number] Unit: [id number] AGE: 66 Location: PAT Re09/28/17 SEX: F Status: REG REF SPEC: [id number] OZ: 09/28/[address]: Massiel Kinney MD REQ: [id number] RECD: 09/28/17 STATUS: COMP _ SOURCE: URINE SPDESC: ORDERED: Urine Culture QUERIES: Urine Source: Clean Catch Procedure Result Reported Site Urine Culture Final 09/29/17- 1311 ML No Growth (<1,000 CFU/mL) * ML - Main Lab . END OF REPORT DEPARTMENT OF PATHOLOGY, [address] [place] [address] Salinas Mathew M.D. Director [facility] # [id number] Procedures Date CPT Code Description Status Comment 01/02/201836973 Inject/Drain Joint/Bursa Major W/O US Completed 10/11/2017 32487 TKR Total Knee Replacement Completed 10/11/2017 52528 TKR Total Knee Replacement Completed 10/06/2017 07718 ECHO Transthorasic Realtime 2D W Doppler Completed & Color Flow Hosp 10/06/2017 10851 ECHO Transthorasic Realtime 2D W Doppler Completed & Color Flow Hosp 10/03/2017 76016 Treadmill Interp/Report Only Completed 10/03/2017 76882 Stress Test Supervsn W/Out I/R Completed 09/27/2017 81474 EKG Tracing & Interpretation Completed 08/26/2017 78868 Inject/Drain Joint/Bursa Major W/O US Completed 09/03/2013 38512 Arthroscopy Shoulder,W/Rotator Cuff Completed 90 DAY GLOBAL Repair 09/03/2013 16644 Arthroscopy,Shoulder Decompression Of Completed Subacromial Space W/Acromio 03/07/201391085 Inject/Drain Joint/Bursa Major W/O US Completed Encounters Type Date Location Provider CPT E/M Dx Office Visit 01/02/2018 9:30a [facility] Kinney M.D. 67239 Z47.1 [facility] Z96.651 M25.562 M25.462 M17.12 Office Visit 10/12/2017 9:32a [facility],[place] [address] [facility] M06.9 Office Visit 10/11/2017 9:31a [facility] Mart[facility] [place] [address] [facility] M06.9 Office Visit 10/07/2017 9:15a [facility] Manoj Marquez, 52442 R94.31 [facility] Nahomi I49.3 Office Visit 09/27/2017 1:30p [facility] Marquez, 11635 R94.31 [facility] Nahomi I49.3 Z01.810 M21.061 Office Visit 09/07/2017 9:15a [facility] Kinney M.D. 21398 M17.0 [facility] M21.062 M21.061 M25.561 M25.562 M25.461 M25.462 Office Visit 08/26/2017 9:00a [facility] Msasiel Kinney M.D. 51930 M17.0 [facility] M25.561 M25.562 M25.461 M25.462 M21.062 M21.061 Office Visit 08/20/2013 9:30a [facility] Lázaro Emerson M.D. 10056 840.4 [facility] [place] Office Visit 08/08/2013 9:00a [facility] Desmond Aguilar M.D. 72683 840.4 [facility] [place] 714.0 Office Visit 07/18/2013 9:45a [facility] Aguilar M.D. 98651 714.0 [facility] [place] 840.9 Office Visit 03/07/2013 9:30a [facility] Aguilar M.D. 43141 840.9 [facility] [place] 840.4 714.0 Office Visit 01/24/2013 10:00a [facility] Aguilar M.D. 68344 840.4 [facility] [place] Office Visit 01/03/2013 10:30a [facility] Aguilar M.D. 64816 840.9 [facility] [place] Plan of Care Future Appointment(s):03/27/2018 10:30 am - Massiel Kinney M.D. at [facility]03/14/2018 11:30 am - FRANCI Goldsmith at [facility]03/14/2018 11:30 am - PASTOR Jiménez at [facility]03/14/2018 11:30 am - Massiel Kinney M.D. at [facility]03/01/2018 - Massiel Kinney M.D.M25.562 Pain in left kneeFollow up:Follow up: 2 weeks after iuftlnmF16.462 Effusion, left kneeM17.12 Unilateral primary osteoarthritis, left knee
[2018-03-14] MEDS ORDERED: Bupivacaine 0.5% PF 10 ML VIAL INJ ONE (14:02)
[2018-03-14] MEDS ORDERED: Dexamethasone IV* 4 MG/ML 1 ML (4 MG) ONE (14:03)
[2018-03-14] MEDS ORDERED: Famotidine IV* 10 MG/ML 2 ML (20 mg) ONE (14:03)
[2018-03-14] MEDS ORDERED: ceFAZolin 2 GM PREMIX in ORs 2 GM/50 ML BAG IVPB ONE (14:04)
[2018-03-14] MEDS ORDERED: Buffered Lidocaine 0.9% SYRIN* 5 ML/SYR SYRINGE ONE (14:04)
[2018-03-14] MEDS ORDERED: Lidocaine 1%* 5 ML VIAL ONE (14:28)
[2018-03-14] MEDS ORDERED: ROPIVACAINE 5 MG/ML 30 ML BTL (0.5%) ONE (14:28)
[2018-03-14] MEDS ORDERED: Magnesium Hydroxide LIQ* 30 ML UDC PO PRN (15:08)
[2018-03-14] MEDS ORDERED: Ondansetron TAB* 4 MG PO PRN (15:08)
[2018-03-14] MEDS ORDERED: diPHENhydraMINE IV* 50 MG/ML 1 ml VIAL (BENADRYL) IV PRN (15:08)
[2018-03-14] MEDS ORDERED: Polyethylene Glycol 3350* 17 GM PACKET PO PRN (15:08)
[2018-03-14] MEDS ORDERED: Morphine VIAL* 4 MG/ML VIAL (1 ml vial) IV PRN (15:08)
[2018-03-14] MEDS ORDERED: Bisacodyl SUPP* 10 MG SUPP PR PRN (15:08)
[2018-03-14] MEDS ORDERED: Ondansetron INJ* 2 MG/ML VIAL IV PRN (15:08)
[2018-03-14] MEDS ORDERED: oxyCODONE/Acetamin 5/325 MG* TAB PO PRN (15:08)
[2018-03-14] MEDS ORDERED: Naphazoline/Pheniramine OPTH* 5 ML BTL BOTH EYES PRN (15:11)
[2018-03-14] MEDS ORDERED: Propofol* 10 MG/ML 20 ML BTL ONE (15:56)
[2018-03-14] MEDS ORDERED: Lidocaine 2% PF * 5 ML VIAL ONE (15:56)
[2018-03-14] MEDS ORDERED: Bupivacaine-MPF SPINAL* 7.5 MG/ML - 2ML AMP ONE (15:56)
[2018-03-14] MEDS ORDERED: Propofol* 500 MG/50 ML BTL ONE (15:56)
[2018-03-14] MEDS ORDERED: EPHEDrine (Pressors)* 50 MG/ML VIAL ONE (15:56)
[2018-03-14] MEDS ORDERED: fentaNYL* 50 MCG/ML 2 ML VIAL (100 MCG VIAL) IV PRN (16:08)
[2018-03-14] MEDS ORDERED: Ketorolac INJ* 30 MG/ML 1 ML VIAL IV PRN (16:08)
[2018-03-14] MEDS ORDERED: Acetaminophen IV 1GM/100ML * 1,000 MG/100 ML VIAL IVPB ONE (16:08)
[2018-03-14] MEDS ORDERED: Naloxone* 0.4 MG/ML 1 ML VIAL IV PRN (16:08)
[2018-03-14] MEDS ORDERED: Fluticasone NASAL SPRAY 50MCG* 16 gm SPRAY BTL BOTH NARES PRN (18:38)
[2018-03-14] MEDS ORDERED: Warfarin TAB(*) 6 MG PO ONE (19:30)
[2018-03-14] MEDS: Acetaminophen TAB* 325 MG PO SCH (21:34)
[2018-03-14] MEDS: Docusate CAP* 100 MG PO SCH (21:34)
[2018-03-14] MEDS: Magnesium Hydroxide LIQ* 30 ML UDC PO SCH (21:34)
[2018-03-14] MEDS: traMADol TAB* 50 MG PO PRN (21:37)
[2018-03-14] MEDS: ceFAZolin 1 GM in Dextrose (*) 1 GM/50 ML BAG IVPB SCH (23:45)
[2018-03-15] MEDS: oxyCODONE TAB* 5 MG TAB PO PRN ×3 (00:39→21:16)
--- NOTE | 2018-03-15 03:41 | CONS ---
ADDENDUM NOW INCLUDED ON THIS REPORT [facility] MEDICINE CONSULTATION REPORT: DATE OF CONSULT: 03/14/18 PROVIDER: Trena Asif NP ATTENDING PHYSICIAN: Dr. Kinney. CONSULTING PHYSICIAN: Dr. Honey Mcmahan (dictated by Trena Asif NP). REASON FOR CONSULT: Hypertension. HISTORY OF PRESENT ILLNESS: Ms. Cerrato is a 67-year-old female with a past medical history significant for hypertension, arthritis, depression, anxiety, fibromyalgia, sigmoid diverticulitis, osteopenia, and rheumatoid arthritis, who presented to [facility] for an elective left total knee arthroplasty with Dr. Kinney. Please see dictated H and P from PASTOR Song for complete details. In brief, the patient had ongoing pain in her left knee and failed conservative measures, therefore opted for a left total knee arthroplasty with Dr. Kinney. In the postoperative period, the patient has no complaints. She is doing well. She is awake, alert, and oriented, moving all extremities. We were asked to consult to help comanage her chronic medical conditions. PAST MEDICAL HISTORY: Significant for: 1. Hypertension. 2. Arthritis. 3. Depression. 4. Anxiety. 5. Fibromyalgia. 6. Sigmoid diverticulitis. 7. Osteopenia. 8. Rheumatoid arthritis. PAST SURGICAL HISTORY: 1. Rotator cuff. 2. Lumbar herniated disk. 3. Tonsillectomy. MEDICATIONS: Outpatient medications include: 1. Hydrochloroquine 200 mg p.o. daily. 2. Methotrexate 2.5 mg 7 tablets once weekly. 3. Enbrel 50 mg once weekly. 4. Folic acid. 5. Losartan 25 mg p.o. daily. 6. Fosamax 70 mg p.o. weekly. 7. Sertraline 75 mg p.o. daily. 8. Vitamin B12. 9. Hydrochlorothiazide 12.5 mg p.o. daily. 10. Citracal. 11. Claritin 10 mg p.o. daily p.r.n. 12. Flonase one spray to each naris as needed. 13. Naphcon eye drops 4 times a day as needed. ALLERGIES: No known drug allergies. FAMILY HISTORY: Father with a history of [place]. No reported family history of diabetes. Father with a history of lung cancer. Mother with a history of gastric cancer. SOCIAL HISTORY: The patient denies any tobacco or illicit drug use. She is . She lives with her . Surrogate decision maker in the event she is unable to make her own decisions is her , Tien Cerrato. His phone number is [phone]. She is a full code. REVIEW OF SYSTEMS: General: There is no fever, chills. No unintended weight loss. Cardiac: No chest pain or edema. Respiratory: Denies any cough, congestion, hemoptysis, or shortness of breath. GI: Denies any nausea, vomiting, or diarrhea. : Denies any urinary frequency or urgency. Denies any abdominal pain. Eyes: No visual complaints. ENT: No dysphagia. Neuro: No focal weakness or sensory loss. Denies any arthralgias or myalgias. Skin: No rashes or lesions. Psych: Denies any depression or anxiety. PHYSICAL EXAM: Vitals: Blood pressure is 122/87, heart rate is 69, O2 saturation 92% on room air, temperature was 97.6. General: Ms. Cerrato is sitting on the bed in the PACU. She is in no acute distress. Neuro: She is awake, alert, and oriented x3. She is able to move all 4 extremities with 5/5 strength. Speech is clear. There is no gross focal deficits. Cardiac: S1, S2 normal. Regular rate and rhythm. No murmurs, rubs, or gallops. Lungs are clear to auscultation bilaterally. No wheezes, rales, or rhonchi. Abdomen is soft and nontender. Bowel sounds are present x4. Extremities: There is no cyanosis or edema. She does have dressing intact to her left knee that is dry and intact. Pedal pulses are +2 bilaterally. Sensation is intact bilaterally. IMPRESSION AND PLAN: Ms. Cerrato is a 67-year-old female with a past medical history significant for hypertension, arthritis, depression, anxiety, fibromyalgia, osteopenia, and rheumatoid arthritis, who presented to [facility] for an elective left total knee arthroplasty with Dr. Kinney. The recommendations are as follows: 1. Status post left total knee arthroplasty with Dr. Kinney. Management per Orthopedics. 2. Hypertension. I would hold her hydrochlorothiazide at this time and will continue losartan with holding parameters as systolic blood pressure less than 110. 3. Anxiety. I would continue her sertraline at 75 mg p.o. daily as previously prescribed. 4. Rheumatoid arthritis. I would hold her Enbrel and hydrochloroquine at this time. 5. DVT prophylaxis as per Orthopedics. 6. Code status. She is a full code. 7. FEN. She can have her healthy decaff okay diet. TIME SPENT: Time spent on this consultation was 45 minutes. More than half that time was spent with the patient reviewing events leading thus far to her hospitalization, performing physical exam, and reviewing my plan of care. I have discussed this with my attending, Dr. Honey Mcmahan, she is in agreement with my plan. TRENA ASIF NP ADDENDUM: LABORATORY DATA: Lab work from 02/24/18, WBCs were 5.6, RBCs 3.94, hemoglobin of 13.0, hematocrit was 39, and platelet count was 253. ESR was 20. INR was 0.90. APTT was 29.0. Chemistry from 02/24/18, sodium 141, potassium 3.9, chloride 103, carbon dioxide was 30, anion gap was 8, BUN was 17, creatinine 0.59, glucose was 92, calcium 9.0, ASTs were 16, ALTs were 9, alkaline phosphatase was 67. Urine from 03/01/18 was within normal limits. Urine ascorbic acid was negative. TRENA ASIF NP [id number]/[facility] #: [id number]/[facility] #: [id number] [facility]
--- NOTE | 2018-03-15 04:33 | CONS ---
CONSULTATION REPORT: ADDENDUM: LABORATORY DATA: Lab work from 02/24/18, WBCs were 5.6, RBCs 3.94, hemoglobin of 13.0, hematocrit was 39, and platelet count was 253. ESR was 20. INR was 0.90. APTT was 29.0. Chemistry from 02/24/18, sodium 141, potassium 3.9, chloride 103, carbon dioxide was 30, anion gap was 8, BUN was 17, creatinine 0.59, glucose was 92, calcium 9.0, ASTs were 16, ALTs were 9, alkaline phosphatase was 67. Urine from 03/01/18 was within normal limits. Urine ascorbic acid was negative. OCTAVIA BROWN, [employer] P[employer] CLEANER [id number]/[facility] #: [id number] MTDD
[2018-03-15] MEDS: traMADol TAB* 50 MG PO PRN ×3 (04:53→23:49)
[2018-03-15] MEDS: Acetaminophen TAB* 325 MG PO SCH ×3 (06:10→16:07)
[2018-03-15 06:17] LABS: Hematocrit 31 % (35-47); Hemoglobin 10.4 g/dl (12.0-16.0); Mean Platelet Volume 8.5 fL (7.4-10.4); Platelet Count 198 10^3/ul (150-450)
[2018-03-15 06:23] LABS: INR 0.95 (0.77-1.02)
[2018-03-15] MEDS: Docusate CAP* 100 MG PO SCH ×2 (08:38→21:16)
[2018-03-15] MEDS: oxyCODONE/Acetamin 5/325 MG* TAB PO PRN ×2 (08:38→23:49)
[2018-03-15] MEDS: Losartan TAB* 25 MG PO SCH (08:38)
[2018-03-15] MEDS: Sertraline* 50 MG TAB PO SCH (08:38)
[2018-03-15] MEDS: ceFAZolin 1 GM in Dextrose (*) 1 GM/50 ML BAG IVPB SCH ×2 (08:40→16:00)
[2018-03-15] MEDS ORDERED: Fluticasone NASAL SPRAY 50MCG* 16 gm SPRAY BTL BOTH NARES SCH (09:00)
[2018-03-15] MEDS ORDERED: NON FORMULARY MED* (Hydrochlorothiazide [Hydrochlorothiazide] 12.5 MG) PO SCH (09:00)
[2018-03-15] MEDS ORDERED: Losartan TAB* 25 MG PO SCH (09:00)
[2018-03-15] MEDS: Hydroxychloroquine TAB* 200 MG PO SCH (09:58)
[2018-03-15] MEDS: Magnesium Hydroxide LIQ* 30 ML UDC PO SCH ×2 (09:58→21:27)
[2018-03-15] MEDS: Enoxaparin(*) 40 MG/0.4 ML SYR SUBCUT SCH (11:41)
--- NOTE | 2018-03-15 11:46 | PN ---
Progress Note - Progress Note Date of Service: 03/15/18 SOAP: Subjective: []Patient was seen and examined at bedside. She feels well and intends to DC to home tomorrow. Denies CP, SOB, dizziness, nausea. Objective: []General: Well appearing, NAD LLE: Left knee dressing CDI. DF/PF intact, sensation intact distally, DP2+ Calves supple and nontender without erythema, edema or palpable cords Assessment: []POD 1 sp left total knee replacement Plan: []WBAT PT/OT Lovenox bridge to coumadin, coumadin 8 mg Anticipate DC home tomorrow Vital Signs Temp 97.7 F 03/15/18 11:18 Pulse 70 03/15/18 11:18 Resp 20 03/15/18 11:41 BP 126/61 03/15/18 11:18 Pulse Ox 98 03/15/18 11:18 Intake & Output 03/14/18 03/15/18 03/15/18 18:59 06:59 18:59 Intake Total 1700 1730 240 Output Total 250 1200 475 Balance 1450 530 -235 Weight 223 lb Intake: IV Fluids 1700 980 LR 1700 980 IVPB 50 ABX - CEFAZOLIN 50 Oral 700 240 Output: Urine 100 0 475 Casarez 1200 Estimated Blood Loss 150 Laboratory Last Values Hgb 10.4 g/dl (12.0-16.0) L 03/15/18 05:57 Hct 31 % (35-47) L 03/15/18 05:57 Plt Count 198 10^3/ul (150-450) 03/15/18 05:57 MPV 8.5 fL (7.4-10.4) 03/15/18 05:57 INR (Anticoag Therapy) 0.95 (0.77-1.02) 03/15/18 05:57 Sodium 140 mmol/L (135-145) 03/15/18 05:57 Potassium 3.9 mmol/L (3.5-5.0) 03/15/18 05:57 Chloride 106 mmol/L (101-111) 03/15/18 05:57 Carbon Dioxide 29 mmol/L (22-32) 03/15/18 05:57 Anion Gap 5 mmol/L (2-11) 03/15/18 05:57 BUN 14 mg/dL (6-24) 03/15/18 05:57 Creatinine 0.54 mg/dL (0.51-0.95) 03/15/18 05:57 Est GFR ( Amer) 136.7 (>60) 03/15/18 05:57 Est GFR (Non-Af Amer) 113.0 (>60) 03/15/18 05:57 BUN/Creatinine Ratio 25.9 (8-20) H 03/15/18 05:57 Glucose 106 mg/dL (70-100) H 03/15/18 05:57 Calcium 8.6 mg/dL (8.6-10.3) 03/15/18 05:57
[2018-03-15] MEDS ORDERED: Warfarin TAB(*) 4 MG PO ONE (17:00)
--- NOTE | 2018-03-15 20:46 | PN ---
Subjective Date of Service: 03/15/18 Interval History: Denies chest pain or shortness of breath, c/o pain to left knee pain . Denies abd pain n/v/d Family History: Unchanged from Admission Social History: Unchanged from Admission Past Medical History: Unchanged from Admission Objective Active Medications: Acetaminophen (Tylenol Tab*) 975 mg PO Q8HR [facility] Last Admin: 03/15/18 16:07 Dose: 975 mg Bisacodyl (Dulcolax Supp*) 10 mg TN DAILY PRN PRN Reason: constipation Cyclobenzaprine HCl (Flexeril Tab*) 10 mg PO TID PRN PRN Reason: SPASMS Diphenhydramine HCl (Benadryl Iv*) 12.5 mg IV Q6H PRN PRN Reason: PRURITIS Docusate Sodium (Colace Cap*) 100 mg PO BID [facility] Last Admin: 03/15/18 08:38 Dose: 100 mg Enoxaparin Sodium (Lovenox(*)) 40 mg SUBCUT Q24H [facility] Last Admin: 03/15/18 11:41 Dose: 40 mg Fluticasone Propionate (Flonase Nasal Shubert 50mcg*) 1 spray BOTH NARES DAILY PRN PRN Reason: Allergy Symptoms Hydroxychloroquine Sulfate (Plaquenil Tab*) 200 mg PO [facility] Last Admin: 03/15/18 09:58 Dose: 200 mg Lactated Ringer's (Lactated Ringers 1000 Ml Bag*) 1,000 mls @ 100 mls/hr IV PER RATE [facility] Last Admin: 03/15/18 04:47 Dose: 100 mls/hr Lactulose (Lactulose*) 30 ml PO Q6H PRN PRN Reason: constipation Losartan Potassium (Cozaar Tab*) 25 mg PO QAM [facility] Last Admin: 03/15/18 08:38 Dose: 25 mg Magnesium Hydroxide (Milk Of Magnesia Liq*) 30 ml PO BID [facility] Last Admin: 03/15/18 09:58 Dose: 30 ml Magnesium Hydroxide (Milk Of Magnesia Liq*) 30 ml PO Q6H PRN PRN Reason: constipation Morphine Sulfate (Morphine Vial*) 2 mg IV Q2H PRN PRN Reason: PAIN Naphazoline HCl/Pheniramine Maleate (Naphcon-A*) 2 drop BOTH EYES QID PRN PRN Reason: ITCHING Ondansetron HCl (Zofran Inj*) 4 mg IV Q6H PRN PRN Reason: nausea Ondansetron HCl (Zofran Tab*) 4 mg PO Q6H PRN PRN Reason: NAUSEA Oxycodone HCl (Roxycodone Tab*) 10 mg PO Q4H PRN PRN Reason: SEVERE PAIN Last Admin: 03/15/18 11:41 Dose: 10 mg Oxycodone/Acetaminophen (Percocet 5/325 Tab*) 1 tab PO Q4H PRN PRN Reason: PAIN Oxycodone/Acetaminophen (Percocet 5/325 Tab*) 2 tab PO Q4H PRN PRN Reason: PAIN Last Admin: 03/15/18 08:38 Dose: 2 tab Pharmacy Profile Note (Coumadin Daily Reminder*) 1 note FOLLOW UP 1700 [facility] Last Admin: 03/15/18 17:15 Dose: 1 note Polyethylene Glycol/Electrolytes (Miralax*) 17 gm PO DAILY PRN PRN Reason: Constipation Sertraline HCl (Zoloft*) 75 mg PO QAM [facility] Last Admin: 03/15/18 08:38 Dose: 75 mg Tramadol HCl (Ultram*) 50 mg PO Q6H PRN PRN Reason: PAIN Last Admin: 03/15/18 16:07 Dose: 50 mg Vital Signs - 8 hr 03/15/18 03/15/18 03/15/18 13:51 16:00 16:07 Temperature Pulse Rate Respiratory 18 18 Rate Blood Pressure (mmHg) O2 Sat by Pulse 95 Oximetry 03/15/18 03/15/18 16:22 18:53 Temperature 98.2 F Pulse Rate 81 Respiratory 19 18 Rate Blood Pressure 140/73 (mmHg) O2 Sat by Pulse 95 Oximetry Oxygen Devices in Use Now: None Appearance: alert, appears comfortable resting in bed, no acute distress Eyes: No Scleral Icterus Ears/Nose/Mouth/Throat: Clear Oropharnyx, Mucous Membranes Moist Neck: NL Appearance and Movements; NL JVP, Trachea Midline Respiratory: Symmetrical Chest Expansion and Respiratory Effort, Clear to Auscultation Cardiovascular: NL Sounds; No Murmurs; No JVD, No Edema Abdominal: NL Sounds; No Tenderness; No Distention Extremities: No Edema, No Clubbing, Cyanosis, - - pedal pulses + 2 bilat Skin: No Rash or Ulcers, - - dressing intact to left knee Neurological: Alert and Oriented x 3 Nutrition: Taking PO's Result Diagrams: 03/15/18 05:57 03/15/18 05:57 Assess/Plan/Problems-Billing Assessment: Ms. Cerrato is a 67-year-old female with a past medical history significant for hypertension, arthritis, depression, anxiety, fibromyalgia, osteopenia, and rheumatoid arthritis, who presented to [facility] for an elective left total knee arthroplasty. - Patient Problems (1) Status post total left knee replacement Current Visit: Yes Status: Acute Code(s): Z96.652 - PRESENCE OF LEFT ARTIFICIAL KNEE JOINT SNOMED Code(s): 3173572303447 Comment: management per orthopedic PT/OT per Ortho DVT Prop per Ortho (2) HTN (hypertension) Current Visit: No Status: Acute Code(s): I10 - ESSENTIAL (PRIMARY) HYPERTENSION SNOMED Code(s): 00410549 Comment: - SBP 108-140. - Continue losartan, will restart HTCZ if BP remains stable (3) Rheumatoid arthritis Current Visit: No Status: Chronic Code(s): M06.9 - RHEUMATOID ARTHRITIS, UNSPECIFIED SNOMED Code(s): 21095394 Comment: - continue home medications as directed by PMD - as outpatient (4) DVT prophylaxis Current Visit: No Status: Acute Code(s): MXZ7496 - SNOMED Code(s): 501606977 Comment: as per ortho (5) Full code status Current Visit: No Status: Acute Code(s): Z78.9 - OTHER SPECIFIED HEALTH STATUS SNOMED Code(s): 392667099 Comment: Status and Disposition: disposition per ortho
[2018-03-15] MEDS: Cyclobenzaprine TAB* 10 MG PO PRN (21:17)
[2018-03-16] MEDS: Acetaminophen TAB* 325 MG PO SCH ×3 (00:11→11:56)
--- NOTE | 2018-03-16 02:48 | OP ---
DATE OF OPERATION: 03/14/18 - ROOM #349 DATE OF : 52 SURGEON: Massiel Kinney MD. SECOND GRADE TEACHER: PASTOR Song. Ms. Garza did help throughout the procedure with preparation of the leg, wound retraction, manipulation of the knee, and wound closure. ANESTHESIOLOGIST: Dr. Tompkins. ANESTHESIA: Spinal. PRE-OP DIAGNOSIS: Severe endstage degenerative osteoarthritis of the left knee joint. POST-OP DIAGNOSIS: Severe endstage degenerative osteoarthritis of the left knee joint. OPERATIVE PROCEDURE: Left total knee arthroplasty. TOURNIQUET TIME: 48 minutes. COMPLICATIONS: None. ESTIMATED BLOOD LOSS: 200 cc. SPECIMEN: Bone and cartilage from the left knee joint sent to Pathology. HARDWARE USED: This is cemented [employer] total knee arthroplasty hardware. Two packages of Simplex bone cement. For the femur, a size 5 left Oxinium posterior stabilized Legion femoral component. For the tibia, a size 4 , left tibial blase plate, Renee II. For the insert, a 9-mm posterior stabilized articular insert, size 3-4 and for the patella, a 32-mm 3 peg all poly patella with 7.5 thickness. BRIEF HISTORY/INDICATIONS: Ms. Cerrato is a 67-year-old female with years of increasingly severe left knee pain. She failed conservative treatment with antiinflammatories, pain medication, physical therapy, and intraarticular injections. Due to continued pain and decreased quality of life, she elected to undergo left total knee arthroplasty. Radiographs showed advanced arthritis. Informed consent was obtained from the patient. She understood the risks of surgery include, but were not limited to, bleeding, infection, damage to nearby structures, continued pain, need for further surgery, intraoperative fracture, nerve palsy, hardware failure, knee stiffness, loss of motion, stroke , heart attack, blood clot, and . She wishes to proceed. INTRAOPERATIVE FINDINGS: Intraoperatively, the patient was noted to have severe endstage arthritis with complete loss of cartilage in all 3 compartments. She had significant osteopenia. DESCRIPTION OF PROCEDURE: Ms. Cerrato is a 67-year-old female, identified in the preanesthesia unit. Her left lower extremity was marked as the correct operative side. Informed consent was signed and placed in the chart. The patient was taken to the operating room and placed under anesthesia without difficulty. A Casarez catheter was placed. Tourniquet was placed on the left thigh. Left lower extremity was prepped and draped in the usual sterile fashion. Preop time-out was made to correctly identify the patient's side and site. Appropriate perioperative antibiotics were given within 1 hour of incision. Tourniquet was inflated until tourniquet time for this procedure was 48 minutes. A midline incision was made with a 10 blade and carried down to the extensor mechanism. A new 10 blade was used to make a standard medial parapatellar arthrotomy. Electrocautery was used to subperiosteally elevate soft tissue off the superomedial tibia to the mid sagittal plane. The knee was flexed up. The anterior horn of the lateral meniscus and ACL were sharply released. A drill was used to enter the distal femur. Intramedullary distal femoral cutting guide was pinned on the distal femur. Oscillating saw was used to make the distal femur cut. External rotation guide was pinned on the distal femur and distal femur was sized to a size 5. A size 5 multi- cutting jig was pinned on the distal femur. Oscillating saw was used to make the appropriate 4 chamfer cuts. The PCL was completely released. The tibia was subluxed anteriorly. Extramedullary tibial cutting guide was pinned on the proximal tibia. The oscillating saw was used to make the proximal tibial cut, perpendicular to the mechanical axis of the tibia. The bone was carefully removed. The knee was brought out into full extension. Spacer block had excellent fit with the knee in full extension. The medial and lateral ligaments were well balanced. Flexion and extension gap was well balanced. The knee was flexed up. Lamina manager combination was placed both medially and laterally. Any remaining meniscus was carefully removed using electrocautery. Curved osteotome was used to remove any posterior osteophytes. Tibial tray and drop geetha were placed and once again confirmed a satisfactory tibial cut. A size 5 left femoral trial was impacted on to the distal femur and had excellent fit. The box for the posterior stabilized implant was prepared using a reamer and box cut osteotome. A size 4 tibial tray trial with a 9-mm insert trial was placed and the knee was taken through a range of motion. The knee had full extension to 130 degrees of flexion. There was satisfactory patellofemoral tracking. The patella was everted and 7 mm of patellar bone and cartilage were carefully removed using an oscillating saw. The patella was sized to a size 32. Three peg holes were drilled through the size 32 guide. The 32 trial patella with 7.5 thickness was placed and the knee was taken through a range of motion. The knee had satisfactory patellofemoral tracking. All trials were carefully removed. The tibia was subluxed anteriorly and sized to a size 4. Proximal tibia was prepared using a size 4 keel punch. All bony cut surfaces were copiously irrigated with sterile saline and dried. Final implants were cemented into place starting with the tibia, followed by the femur and last the patella. A 9-mm insert trial was placed and the knee was brought out into full extension. The tourniquet was turned down at 48 minutes. The knee was copiously irrigated with sterile saline. Electrocautery was used to obtain meticulous hemostasis. Once the cement had fully cured, the insert trial was removed. Any excess cement was removed from around the capsule and hardware. Final insert chosen was a 9-mm posterior stabilized articular insert size 3-4. This was locked into position on the tibial tray. Stability of the insert was checked and rechecked and noted to be stable. The knee was copiously irrigated with sterile saline. The extensor mechanism was closed using interrupted #1 Vicryls. The rest of the incision was closed in a layered fashion using 0 and 2-0 Vicryls. Skin was closed using running 3- 0 nylon suture. Sterile Xeroform, 4x4s, and Webril were used to cover the incision. Tonny wrap and cold pack were placed over this. The patient's anesthesia was reversed without difficulty. She was taken to the PACU in stable condition. Intended weightbearing will be weightbearing as tolerated. Intended DVT prophylaxis will be Coumadin with a Lovenox bridge. [id number]/[facility] #: [id number] MEHDI
[2018-03-16] MEDS: oxyCODONE/Acetamin 5/325 MG* TAB PO PRN (04:55)
[2018-03-16 05:16] LABS: Hematocrit 30 % (35-47); Hemoglobin 10.3 g/dl (12.0-16.0); Mean Platelet Volume 8.7 fL (7.4-10.4); Platelet Count 191 10^3/ul (150-450)
[2018-03-16 05:21] LABS: INR 1.14 (0.77-1.02)
[2018-03-16] MEDS: Sertraline* 50 MG TAB PO SCH (08:26)
[2018-03-16] MEDS: Docusate CAP* 100 MG PO SCH (08:26)
[2018-03-16] MEDS: oxyCODONE TAB* 5 MG TAB PO PRN (08:27)
[2018-03-16] MEDS: Losartan TAB* 25 MG PO SCH (08:27)
[2018-03-16] MEDS: Magnesium Hydroxide LIQ* 30 ML UDC PO SCH (08:29)
[2018-03-16] MEDS: Hydroxychloroquine TAB* 200 MG PO SCH (08:30)
--- NOTE | 2018-03-16 10:59 | PN ---
Progress Note - Progress Note Date of Service: 03/16/18 SOAP: Subjective: [] Patient seen and examined at bedside. She is feeling well with tolerable surgical site pain. Denies CP, SOB, dizziness, nausea. Objective: []General: Well appearing, NAD LLE: Left knee dressing changed, incision CDI. DF/PF intact, sensation intact distally, DP2+ Calves supple and nontender without erythema, edema or palpable cords Assessment: []POD 2 sp left total knee replacement Plan: []WBAT PT/OT Did not reach a therapeutic INR. Plan for Lovenox before DC today, switch to eliquis 2.5 mg po BID tomorrow morning DC to home today Vital Signs Temp 98.2 F 03/16/18 07:30 Pulse 79 03/16/18 07:30 Resp 18 03/16/18 08:27 BP 122/54 03/16/18 07:31 Pulse Ox 94 03/16/18 08:00 Intake & Output 03/15/18 03/16/18 03/16/18 18:59 06:59 18:59 Intake Total 1682 800 Output Total 875 550 550 Balance 807 250 -550 Intake: IV Fluids 842 ABX - CEFAZOLIN 55 LR 787 Oral 840 800 Output: Urine 875 550 550 Other: # Bowel Movements 1 Estimated Stool Amount Medium Laboratory Last Values Hgb 10.3 g/dl (12.0-16.0) L 03/16/18 04:45 Hct 30 % (35-47) L 03/16/18 04:45 Plt Count 191 10^3/ul (150-450) 03/16/18 04:45 MPV 8.7 fL (7.4-10.4) 03/16/18 04:45 INR (Anticoag Therapy) 1.14 (0.77-1.02) H 03/16/18 04:45 Sodium 140 mmol/L (135-145) 03/15/18 05:57 Potassium 3.9 mmol/L (3.5-5.0) 03/15/18 05:57 Chloride 106 mmol/L (101-111) 03/15/18 05:57 Carbon Dioxide 29 mmol/L (22-32) 03/15/18 05:57 Anion Gap 5 mmol/L (2-11) 03/15/18 05:57 BUN 14 mg/dL (6-24) 03/15/18 05:57 Creatinine 0.54 mg/dL (0.51-0.95) 03/15/18 05:57 Est GFR ( Amer) 136.7 (>60) 03/15/18 05:57 Est GFR (Non-Af Amer) 113.0 (>60) 03/15/18 05:57 BUN/Creatinine Ratio 25.9 (8-20) H 03/15/18 05:57 Glucose 106 mg/dL (70-100) H 03/15/18 05:57 Calcium 8.6 mg/dL (8.6-10.3) 03/15/18 05:57
[2018-03-16] MEDS: Enoxaparin(*) 40 MG/0.4 ML SYR SUBCUT SCH (11:07)
[2018-03-16] MEDS: Cyclobenzaprine TAB* 10 MG PO PRN (11:12)
[2018-03-16] MEDS: traMADol TAB* 50 MG PO PRN (11:56)
[2018-03-16 12:02] VITALS: BP 126/68
--- NOTE | 2018-03-17 11:43 | DS ---
DISCHARGE SUMMARY: DATE OF ADMISSION: 03/14/18 DATE OF DISCHARGE: 03/16/18 PROVIDER/SURGEON: Massiel Kinney MD.* (DICTATED BY PASTOR SCHWARTZ) RECREATION DIRECTOR: PASTOR Song. PREOPERATIVE DIAGNOSIS: Severe endstage degenerative osteoarthritis of the left knee joint. OPERATIVE PROCEDURE: Left total knee arthroplasty. HISTORY: Ms. Cerrato is a 67-year-old female with years of increasingly severe left knee pain. She failed conservative management with antiinflammatories, pain medications, physical therapy, and intraarticular injections. She elected to undergo a left total knee arthroplasty. HOSPITAL COURSE: The patient was admitted to [facility] on . She underwent a left total knee arthroplasty without complication. On postop day 1, she was well appearing, in no acute distress. Left knee dressing was clean, dry, and intact. Dorsiflexion and plantar flexion intact. Sensation intact distally. DP pulse 2+. Vital Signs: 97.7, pulse 70, respiratory rate 20, blood pressure 126/61, pulse ox 98%. Hemoglobin 10.4, hematocrit 31. INR is 0.95. She was also seen by the hospitalist service during her stay. Her hydrochlorothiazide was held day 1 and restarted at discharge. Postop day 2, dressing was changed. Incision clean, dry and intact. No other changes to exam. Vital Signs: Temperature 98.2, pulse 79, respiratory rate 18, blood pressure 122/54, pulse ox 94. Hemoglobin 10.3, hematocrit 30. INR 1.14. Due to the patient not reaching a therapeutic INR on the day of discharge, she will be switched to Eliquis 2.5 mg p.o. b.i.d. tomorrow morning. Today before leaving, she will receive a dose of Lovenox. DISCHARGE MEDICATIONS: 1. Claritin D 24 hour tablet 10 mg p.o. daily p.r.n. 2. Flonase nasal spray 50 mcg 1 spray both nares daily. 3. Ubiquinol 600 mg p.o. q.a.m. 4. Tumeric root extract 1000 mg p.o. q.a.m. 5. Hydrochlorothiazide 12.5 mg p.o. q.a.m. 6. Vitamin B complex 1 tab p.o. q.a.m. 7. Vitamin D3 at 2000 units p.o. q.a.m. 8. Vitamin K 40 mcg tablet 100 mcg p.o. q.a.m. 9. Alendronate sodium 70 mg p.o. weekly. 10. Methotrexate 2.5 mg tabs 7 cap p.o. weekly. 11. Folic acid 1 mg p.o. q.a.m. 12. Hydroxychloroquine 200 mg p.o. q.a.m. 13. Sertraline 75 mg p.o. q.a.m. 14. Singulair 10 mg p.o. q.p.m. p.r.n. 15. Losartan 25 mg p.o. q.a.m. 16. Enbrel 50 mg subcu per instructions. 17. Naphcon-A ophthalmic 2 drops both eyes q.i.d. p.r.n. 18. Calcitriol plus D3 gummies 1 tab p.o. b.i.d. 19. Docusate 100 mg p.o. b.i.d. 20. Vitamin B12 injections 1000 mcg per instruction. 21. Percocet 5/325 one to two tabs every 4 to 6 hours as needed for pain, max daily dose of 10. 22. Acetaminophen 975 mg p.o. q.8 hours p.r.n. 23. Eliquis 2.5 mg p.o. q.12 hours for 30 days. DISCHARGE PLAN: The patient will be weightbearing as tolerated. She will follow up with Dr. Kinney in 10 to 14 days. Pain control with Percocet 5/325 mg 1 to 2 tabs by mouth every 4 to 6 hours as needed for pain, max daily 10 tabs per day. DVT prophylaxis Eliquis 2.5 mg by mouth every 12 hours for 30 days. Start taking on the morning of 03/17/18 as she received a Lovenox injection prior leaving the hospital. The patient is discharged to home. GEOVANI BECKER, PASTOR [id number]/[facility] #: [id number] MEHDI
== END 2018-03-16 13:00 | disposition home health service (06) | DRG 470 ==
LOC: AA 12:09 → SSU 18:43
PROVIDERS: ADMIT Orthopaedic Surgery Adult Reconstructive Orthopaedic Surgery; ATTEND Orthopaedic Surgery Adult Reconstructive Orthopaedic Surgery
PROC: 0SRD06A Replacement of Left Knee Joint with Oxidized Zirconium on Polyethylene Synthetic Substitute, Uncemented, Open Approach (ICD-10-PCS; principal; 2018-03-14 15:00)
DX: M17.12 Unilateral primary osteoarthritis, left knee (principal); I10 Essential (primary) hypertension; Z96.651 Presence of right artificial knee joint; F32.9 Major depressive disorder, single episode, unspecified; F41.9 Anxiety disorder, unspecified; M06.9 Rheumatoid arthritis, unspecified; M79.7 Fibromyalgia; M85.88 Other specified disorders of bone density and structure, other site; M54.40 Lumbago with sciatica, unspecified side; M21.062 Valgus deformity, not elsewhere classified, left knee; M25.462 Effusion, left knee; M81.0 Age-related osteoporosis without current pathological fracture; G47.33 Obstructive sleep apnea (adult) (pediatric); E53.8 Deficiency of other specified B group vitamins; M25.762 Osteophyte, left knee; E55.9 Vitamin D deficiency, unspecified; N39.3 Stress incontinence (female) (male); Z98.51 Tubal ligation status; Z72.89 Other problems related to lifestyle; Z82.49 Family history of ischemic heart disease and other diseases of the circulatory system; Z80.0 Family history of malignant neoplasm of digestive organs; Z87.891 Personal history of nicotine dependence; Z80.1 Family history of malignant neoplasm of trachea, bronchus and lung
CPT/HCPCS: 36415; 80048; 85014; 85018; 85049; 85610; 88305; 88311; A9270-GY; C1776; G8978-GP-CI; G8979-GP-CI; G8987-GO-CI; G8988-GO-CI; G8989-GO-CI; J0690; J1100; J1650; J2250; J2704; J2795; J3010